=== PATIENT | female | born 1925 | race African-American/Black ===

== ENCOUNTER 2016-06-17 16:03 | Inpatient (IN) | payer MEDICARE ==
[~2016-06-17] VITALS: Ht 167.6 cm; Wt 59.0 kg
[~2016-06-17 16:03] MED LIST: BAYER CHEWABLE81 MG PO; CALAN SR180 MG PO; CIPRO500 MG PO; DIOVAN320 MG PO; HUMALOG 30100 UNITS/ SC; K-DUR20 MEQ PO; LASIX20 MG PO; METOPROLOL TART50 MG PO; PACERONE200 MG PO; PROTONIX40 MG PO
[2016-06-17 16:50] LABS: BASOPHILS 0.2 % (0.0-2.0); EOSINOPHILS 1.9 % (0-7); HEMATOCRIT 44.5 % (36.0-48.0); HEMOGLOBIN 14.2 g/dL (12-16); IMMATURE GRANULOCYTES 0.8 % (0-5); LYMPHOCYTES 22.6 % (15-50); MCH 28.2 pg (26.0-34.0); MCHC 31.9 g/dL (31.0-37.0); MCV 88.3 fL (80.0-100.0); MEAN PLATELET VOLUME 9.6 fL (7.4-10.4); MONOCYTES 8.9 % (2-11); NEUTROPHILS 65.6 % (40-80); RBC 5.04 10x6/uL (4.00-5.40); RDW 14.5 % (11.5-14.5); WBC 6.4 10x3/uL (4.8-10.8)
[2016-06-17 17:08] LABS: APTT 29.8 SECONDS (22.8-39.4); INR 1.18 (0.85-1.17); PROTIME 14.9 SECONDS (11.6-15.0)
[2016-06-17 17:10] LABS: APPEARANCE CLEAR (CLEAR); BILIRUBIN NEGATIVE (NEGATIVE); COLOR YELLOW (YELLOW); GLUCOSE NEGATIVE (NEGATIVE); KETONE NEGATIVE (NEGATIVE); LEUKOCYTE ESTERASE TRACE (NEGATIVE); NITRITE POSITIVE (NEGATIVE); PROTEIN NEGATIVE (NEGATIVE); UROBILINOGEN NORMAL (NORMAL)
[2016-06-17 17:11] LABS: BACTERIA MANY /hpf (NONE SEEN); EPITHELIAL CELLS 0-5 /hpf (0-5); RED CELLS - URINE 0-5 /hpf (0-5); WHITE CELLS - URINE 0-5 /hpf (0-5)
[2016-06-17 17:15] LABS: PLATELET COUNT 257 10x3/uL (130-400)
[2016-06-17 17:18] LABS: ALBUMIN 2.9 g/dL (3.4-5.0); ANION GAP 12.4 mmol/L (8-16); BILIRUBIN - TOTAL 0.5 mg/dL (0.2-1.3); CALCIUM 8.5 mg/dL (8.5-10.1); CARBON DIOXIDE 30.3 mmol/L (21.0-32.0); CREATININE - SERUM 1.3 mg/dL (0.6-1.3); POTASSIUM - SERUM 4.7 mmol/L (3.5-5.1); PROTEIN - SERUM 6.9 g/dL (6.4-8.2)
[2016-06-17 17:57] LABS: TROPONIN-I 0.421 ng/mL (0.000-0.060)
[2016-06-18 00:04] VITALS: BP 150/66; BMI 21.0
[2016-06-18 05:00] VITALS: BP 139/61
--- NOTE | 2016-06-18 06:23 | NUR ---
PATIENT'S MOST RECENT TROPONIN 13.139. IT IS ELEVATED FROM A PREVIOUS LEVEL OF 4.403. NOTIFIED DR. MATUTE. WHEN ASKED IF HE WANTED AN EKG HE SAID "NO, AND DON'T DRAW ANYMORE TROPONINS."
--- NOTE | 2016-06-18 07:00 | NUR ---
PT REC'D FROM [facility]ARTWR[facility]. RESTING IN BED WITH LIGHTS OFF. AAOX4. NO COMPLAINTS OF PAIN. ALERTED BY YULI DIAMOND, BP 202/102. WILL RECHECK MANUALLY. LUNG SOUNDS CLEAR AND EQUAL BILAT. BOWEL SOUNDS ACTIVE X4 QUADRANTS. BED LOW, CALL LIGHT IN REACH, WILL CPOC.
[2016-06-18 08:19] VITALS: BP 172/94
--- NOTE | 2016-06-18 08:33 | NUR ---
BP RECHECK MANUALLY. CURRENT BP 172/94 ON L ARM, RUNNING 60 PACED ON TELEMETRY. PT DENIES CHEST PAIN OR ANY PAIN AT ALL. NO SOB. PROVIDED PT WITH LINEN AND SOAP PER REQUEST TO "CLEAN UP." BED LOW, CALL LIGHT IN REACH, WILL CPOC.
--- NOTE | 2016-06-18 09:54 | NUR ---
MORNING MEDS PASSED AT THIS TIME WITH A SIP OF WATER. PT STATES SHE ONLY TAKES 8 PILLS AT HOME AND IS CONFUSED TO WHY SHE IS TAKING MORE HERE. TRIED TO EXPLAIN TO PT THAT THIS IS WHAT THE DOCTOR CONTINUED AND WANTS HER TO TAKE HERE. TOLD PT THAT IF SHE THINKS IT NEEDS TO BE CHANGED TO ASKE HER DOCTOR WHY SHE IS TAKING MORE HERE. PT TOOK MEDS WITHOUT QUESTIONS. NO COMPLAINTS. BED LOW, CALL LIGHT IN REACH, DENIES NEEDS.
--- NOTE | 2016-06-18 12:00 | NUR ---
PT DIET CHANGED TO CARDIAC DIET. 1 TIME FOOD REQUEST ORDERED. FAMILY AT BEDSIDE. BED LOW, CALL LIGHT IN REACH, WILL CPOC.
--- NOTE | 2016-06-18 12:00 | NUR ---
PATIENT SITTING UP ON SIDE OF BED WITH NO COMPLAINTS. FAMILY AT BEDSIDE. CALL LIGHT WITHIN REACH.
[2016-06-18 12:23] VITALS: BP 192/91
[2016-06-18 13:06] VITALS: Ht 167.6 cm; Wt 59.0 kg
[2016-06-18 15:41] VITALS: BP 152/72
[2016-06-18 17:04] LABS: HEMATOCRIT 43.3 % (36.0-48.0); HEMOGLOBIN 14.1 g/dL (12-16); LYMPHOCYTES 28.6 % (15-50); MCH 27.9 pg (26.0-34.0); MCHC 32.6 g/dL (31.0-37.0); MEAN PLATELET VOLUME 9.2 fL (7.4-10.4); PLATELET COUNT 275 10x3/uL (130-400); RBC 5.06 10x6/uL (4.00-5.40); RDW 14.5 % (11.5-14.5)
[2016-06-18 17:10] LABS: MCV 85.6 fL (80.0-100.0)
--- NOTE | 2016-06-18 20:00 | NUR ---
PATIENT IN BED WATCHING TV. AAOX4. RR EVEN AND UNLABORED. 0 S/S OF DISTRESS. DENIES ANY PAIN. IV TO RIGHT HAND S/L WITH NO REDNESS OR SWELLING. SWAB CAP IN PLACE. TELEMETRY ON. /A ON. SRX1. BED LOW. CALL LIGHT WITHIN REACH.
[2016-06-18 21:00] VITALS: BP 163/83
--- NOTE | 2016-06-18 21:15 | NUR ---
NIGHTTIME MEDS GIVEN. NO NEEDS AT THIS TIME.
[2016-06-19 00:45] VITALS: BP 173/76
--- NOTE | 2016-06-19 01:35 | NUR ---
PATIENT SLEEPING WITH NO DISTRESS NOTED.
[2016-06-19 05:00] VITALS: BP 181/93
--- NOTE | 2016-06-19 07:00 | NUR ---
PT REC'D FROM KATHY CARTWRIGHT. SITTING UP ON SIDE OF BED. AAOX4. LUNG SOUNDS CLEAR AND EQUAL BILAT. BOWEL SOUNDS ACTIVE X4 QUADRANTS. NO COMPLAINTS OF PAIN. BED LOW, CALL LIGHT IN REACH, DENIES NEEDS. CPOC.
--- NOTE | 2016-06-19 09:08 | NUR ---
PATIENT SITTING UP IN BED WITH NO COMPLAINTS AT THIS TIME. CALL LIGHT WITHN REACH.
[2016-06-19 09:42] VITALS: BP 135/83
--- NOTE | 2016-06-19 10:05 | NUR ---
MORNING MEDS PASSED AT THIS TIME. PT SITTING UP IN BED WATCHING TV. NO COMPLAINTS OF PAIN, BED LOW, CALL LIGHT IN REACH, WILL CPOC.
[2016-06-19] MEDS ORDERED: CIPRO250 MG PO ×2 (14:46→14:49)
[2016-06-19] MEDS ORDERED: CALAN SR180 MG PO (14:50)
--- NOTE | 2016-06-19 16:54 | NUR ---
DRIER UNLOADER REPORTER PAGED REGARDING DC. WANTING TO MAKE SURE SHE IS OKAY TO GO FROM THEIR STANDPOINT.
--- NOTE | 2016-06-19 16:55 | NUR ---
SPOKE WITH DR. MATUTE REGARDING DC. OKAY TO DC TO HOME FROM CARDIAC STANDPOINT.
[2016-06-19 17:20] VITALS: BP 159/77
--- NOTE | 2016-06-19 18:06 | NUR ---
DC INSTRUCTIONS DISCUSSED AND DC PAPERS SIGNED AT THIS TIME WITH NO QUESTIONS OR CONCERNS VOICED BY PT. INSTRUCTED PT ON WHEN F/U APPOINTMENTS WOULD BE AND HOW TO REACH PHYSICAINS IF NEEDED. ESCORTED OUT VIA WC BY [facility] STAFF. DC TO HOME.
--- NOTE | 2016-06-20 14:16 | CN ---
PATIENT NAME:ROSIO GARBER MEDICAL RECORD: [id number] : [birth year] LOCATION:[facility] ADMIT DATE: 06/17/16 ACCOUNT: [id number] CONSULTING PHYSICIAN: NATHAN MATUTE MD REFERRING PHYSICIAN: PEG WEBER MD DATE OF CONSULTATION: 06/17/2016 Cardiology consultation DIAGNOSES: 1. Weakness. 2. Hypertension. 3. Elevated troponin. 4. History of paroxysmal atrial fibrillation. HISTORY OF PRESENT ILLNESS: Mrs. Garber does have a cardiac history. She is followed by Dr. Diaz. She presents with weakness. No chest pain and no chest discomfort. Troponin is mildly elevated at 0.42. She has a right bundle branch block in her EKG, this is not new. She had a very similar admission in 2011. She had elevated troponin at that time. She discontinued medical therapy. She has done well. PHYSICAL EXAMINATION: GENERAL APPEARANCE: Well-nourished, well-developed, appears stated age. Level of distress, comfortable. PSYCHIATRIC: Mental status, alert, normal affect. Orientation, oriented to time, place and person. EYES: Lids and conjunctiva, noninjected. No discharge, no pallor. ENT: Lips, teeth, gums, normal dentition. Oropharynx, no cyanosis, no pallor. NECK: Carotid arteries, bilateral normal upstroke, no bruits, no thrills. JUGULAR VEINS: No jugular venous pressure or distention. CERVICAL LYMPH NODES: Nontender, nonenlarged. THYROID: Not enlarged. Nontender. No nodules. LUNGS: Respiratory effort, unlabored. CHEST: Normal curvature. No thoracic deformity. No chest wall tenderness. Percussion, resonant. Auscultation, clear. No wheezes, no rales, no rhonchi. CARDIOVASCULAR: Precordial exam, nondisplaced. No heaves or pericardial thrills. Rate and rhythm, regular. Heart sounds, normal S1, normal S2. No S3, no gallop, no rub. Systolic murmur, not heard. Diastolic murmur, not heard. EXTREMITIES: No cyanosis, no edema. Peripheral pulses, full and equal in all extremities, except as noted. No bruits appreciated. ABDOMEN: Soft, nondistended. Normal aorta. No bruit. Nontender. No masses. Liver, nontender, no hepatomegaly. Spleen, nontender, no splenomegaly. MUSCULOSKELETAL: No joint tenderness. No joint swelling. No erythema. NEUROLOGICAL: Normal gait, normal strength, normal tone. SKIN: Warm and dry. REVIEW OF SYSTEMS: The patient reports easy bruising but reports no swollen glands. The patient reports no fever, no night sweats, no significant weight gain, no significant weight loss. No significant exercise tolerance. The patient reports no dry eyes, no irritation, no vision change. Patient reports no difficulty hearing and no ear pain. Patient reports no frequent nose bleeds or nose and sinus problems. Patient reports on arm pain on exertion. No shortness of breath while lying down. No history of heart murmur. Patient reports no cough, no wheezing or coughing up blood. Patient reports no CONSULT REPORT [id number] WORD,ROSIO B abdominal pain, no vomiting. Normal appetite. No diarrhea and not vomiting blood. No nausea and no constipation. Patient reports no incontinence. No difficulty urinating. No hematuria. No increased frequency. Patient reports no muscle aches. No weakness, no arthralgias, no back pain. No swelling of the extremities. Patient reports no abnormal mole, no jaundice, no rashes. Reports no loss of consciousness. No weakness and no numbness. No seizures, dizziness, or headaches. The patient reports no depression, no sleep disturbance, feeling safe in a relationship and no alcohol abuse. Patient reports on fatigue. Reports no runny nose or sinus pressure. No itching, no hives, and no frequent sneezing. OVERALL IMPRESSION: Elevated troponin, not sure. This very well might be demand ischemia or blood pressure that is not well controlled. She is on valsartan 320 every day, Lopressor 50 every day, amiodarone 100 every day, and verapamil 180 every day. We would increase the verapamil to twice a day for better blood pressure control. Otherwise, no invasive cardiac workup is needed. TRANSINT:[id number] Voice Confirmation ID: [id number] DOCUMENT ID: [id number] NATHAN MATUTE MD at 1416 CC: [id number] DICTATION DATE: 06/17/161915 MERCHANDISE DISPLAYER: 06/18/16 0003 DIS IN 06/19/16 [place] [address] [place] [address]
== END 2016-06-19 18:10 | disposition home or self-care (01) | DRG 948 ==
LOC: D.ER 16:03 → D.MS 19:14
PROVIDERS: Emergency Medicine; Family Medicine; ADMIT Family Medicine
DX: R53.1 Weakness (principal); I42.9 Cardiomyopathy, unspecified; I50.20 Unspecified systolic (congestive) heart failure; I10 Essential (primary) hypertension; R79.89 Other specified abnormal findings of blood chemistry; I48.0 Paroxysmal atrial fibrillation; Z95.0 Presence of cardiac pacemaker; E11.9 Type 2 diabetes mellitus without complications; K21.9 Gastro-esophageal reflux disease without esophagitis; I49.9 Cardiac arrhythmia, unspecified